=== PATIENT | female | born 1945 | race Caucasian/White ===

== ENCOUNTER 2017-11-28 08:40 | Day surgery (SDC) | payer MEDICARE, OTHER ==
[~2017-11-28] VITALS: Ht 154.9 cm; Wt 58.5 kg
[~2017-11-28 08:40] MED LIST: CYMBALTA20 MG PO; GABAPENTIN600 MG PO; LASIX40 MG PO; PROTONIX20 MG PO; SIMVASTATIN40 MG PO; SYNTHROID100 MCG PO
--- NOTE | 2017-11-28 11:20 | NUR ---
11/28/17 1120 Mary Escamilla 1114-PATIENT ARRIVED TO PACU ON 6L MASK O2 SAT 100% PATIENT NONAROUSABLE LAYING LEFT LATERAL RR EVEN. SB HR 41-43. SB DURING THE CASE.
--- NOTE | 2017-11-29 07:57 | OR ---
[facility] [address] [place], [place] [address] Signed DATE OF OPERATION: 11/28/2017 SURGEON: Christiano Nazario MD PREOPERATIVE DIAGNOSIS: Screening. POSTOPERATIVE DIAGNOSES: 1. A 3 mm polyp at 60 cm. 2. A 3 mm polyps x2 in mid rectum. 3. Tiny internal anal skin tags. PROCEDURE: Colonoscopy with cold biopsy. ESTIMATED BLOOD LOSS: None. INDICATIONS: Lisette is a 72-year-old female asked to see me for a followup colonoscopy. She said 12 years ago she underwent a colonoscopy at [facility] in [place], [place]. She says in the meantime, she is doing great. She has no family history of colon cancer or polyps. I gave her a pamphlet in the office on colonoscopy and we looked at that together. She understands the nature of the test along with the risks including, but not limited to gas bloating, crampy abdominal pain, bleeding, perforation, requiring surgery, and missed diagnosis. She also understands the need for IV conscious sedation. She had expressed understanding and wished to proceed. Lisette asked to use Percocet on a daily basis along with some morphine. Consequently, our standard Versed and fentanyl would not be enough. We asked an anesthesia provider help us with increased monitoring and sedation with propofol. PROCEDURE NOTE: Lisette was taken into our endoscopy suite and placed in the left lateral decubitus position. She was given IV sedation with propofol per our nurse plastics and composites inspector. A digital rectal exam was performed and this was unremarkable. The adult colonoscope was introduced and advanced all around into the cecum under direct visualization of the camera. It took a little extra propofol and some abdominal compression in order to get the scope into the cecum itself. It took a minute to irrigate and suction out the bile. After that, we could easily see the appendiceal orifice. The scope was then slowly withdrawn. We saw just a tiny polyp at 60 cm and a couple of tiny polyps in the mid Electronically Signed By: CHRISTIANO NAZARIO MD 11/29/17 0757 PATIENT NAME: LISETTE THOMAS OPERATIVE REPORT DATE OF : 45 REPORT #: [id number] PHYSICIAN: CHRISTIANO NAZARIO MD PCP: Raza Peralta Jr, PA-C REPORT IS CONFIDENTIAL AND NOT TO BE RELEASED WITHOUT AUTHORIZATION [facility] [address] [place] [id number] Signed rectum. There were easily removed with the cold biopsy forceps. Once in the rectum, the scope was then retroflexed and there was a couple of tiny internal anal skin tags. After this, the gas was suctioned out and the colonoscope removed. Lisette tolerated the procedure quite well. RECOMMENDATIONS: Lisette will follow up my office in 7 to 14 days to review her results. I suspect she will stay on the 10-year rotation. Christiano Nazario MD ALB/MODL /[id number] cc: MD Raza Leon Jr, PA-C Copies: CHRISTIANO NAZARIO MD, Daniel L Jr PA-C ~ Electronically Signed By: CHRISTIANO NAZARIO MD 11/29/17 0757 PATIENT NAME: LISETTE THOMAS OPERATIVE REPORT DATE OF : 45 REPORT #: [id number] PHYSICIAN: CHRISTIANO NAZARIO MD PCP: Raza Peralta Jr, PA-C REPORT IS CONFIDENTIAL AND NOT TO BE RELEASED WITHOUT AUTHORIZATION
== END 2017-11-28 11:57 | disposition home or self-care (01) ==
LOC: OPS 08:40 → DS 08:40 → OPS 09:15 → DS 09:15 → OPS 10:00
PROVIDERS: Colon & Rectal Surgery
PROC: 0DBE8ZX Excision of Large Intestine, Via Natural or Artificial Opening Endoscopic, Diagnostic (ICD-10-PCS; 2017-11-28)
PROC: 0DBP8ZX Excision of Rectum, Via Natural or Artificial Opening Endoscopic, Diagnostic (ICD-10-PCS; principal; 2017-11-28 10:00)
DX: Z12.11 Encounter for screening for malignant neoplasm of colon (principal); D12.8 Benign neoplasm of rectum; K63.5 Polyp of colon; K64.4 Residual hemorrhoidal skin tags; K21.9 Gastro-esophageal reflux disease without esophagitis; E03.9 Hypothyroidism, unspecified; F17.210 Nicotine dependence, cigarettes, uncomplicated; M19.90 Unspecified osteoarthritis, unspecified site; G89.29 Other chronic pain; Z79.899 Other long term (current) drug therapy
CPT/HCPCS: 88305; J2250; J2704; J3010; J7120

== ENCOUNTER 2024-06-27 07:50 | Day surgery (SDC) | payer MEDICARE, OTHER ==
[2024-06-19 09:36] VITALS: BP 132/69
[~2024-06-27] VITALS: Ht 154.9 cm; Wt 73.6 kg
[~2024-06-27 07:50] MED LIST changes: +CEFAZOLIN SODIUM 2 GM/20 ML SYR IV SCH; +HYDROCODON-ACE1 EAC8 PO; +HYDROXYZINE HCL25 MG PO; +IBLOOD GLUCOSE TEST STRIP 1 EA TEST VI PRN; +LACTATED RINGER'S 1,000 ML IV SCH; +LIDOCAINE HCL 1% 5 ML SDV INJ ONE; +LIPITOR20 MG PO; +MIDAZOLAM HCL 5 MG/5 ML VIAL IV PRN; +OMEPRAZOLE40 MG PO; -SYNTHROID100 MCG PO; +SYNTHROID125 MCG PO; +fentaNYL citrate 100 MCG/2 ML VIAL IV PRN; +propofoL 200 MG/20 ML VIAL ONE
[2024-06-27 08:06] VITALS: BP 104/85
[2024-06-27] MEDS ORDERED: LACTATED RINGER'S 1,000 ML IV ONE (09:49)
--- NOTE | 2024-06-27 10:08 | NUR ---
06/27/24 1008 Sheets,Geovanna 0958 PT ARRIVED TO PACU ON 10L WITH ORAL AIRWAY IN PLACE. RESP EVEN AND UNLABORED. PT NONAROUSABLE TO VERBAL STIMULI.
[2024-06-27 10:35] VITALS: BP 128/60
--- NOTE | 2024-06-27 12:49 | OR ---
[facility] [address] [place], [place] [address] Signed DATE OF OPERATION: 06/27/2024 SURGEON: Christiano Nazario MD PREOPERATIVE DIAGNOSIS: Personal history of colonic polyps in 2018 at age 72. POSTOPERATIVE DIAGNOSES: 1. 6 mm pedunculated polyp at 25 cm in sigmoid colon. 2. Minimal internal hemorrhoids. 3. Long redundant colon. PROCEDURE: Colonoscopy with snare polypectomy. ESTIMATED BLOOD LOSS: None. INDICATIONS: Lisette is a 78-year-old female asked to see me for a followup colonoscopy. She has had a negative colonoscopy in 2006 at the age of 60 while living in [place], [place]. I helped her with a colonoscopy in 2018 at the age of 72 for screening purposes. She had a small 3 mm tubular adenomatous polyp removed. She had several small hyperplastic polyps in the rectum. She always needs monitored anesthesia care because of her need for narcotics for her back pain. Despite her kyphosis, she still has good functional status. She is at her ideal body weight. Her primary care provider asked her to come back for what probably is her final colonoscopy. She has no lower GI complaints. There is no family history of colon cancer or polyps. In the office I had given our pamphlet on colonoscopy. She recalls the nature of the test. There is risk including, but not limited to gas bloating, crampy abdominal pain, bleeding, perforation requiring surgery, and missed diagnosis. We also reviewed the written instructions for a bowel prep line by line. It is the same bowel prep she took previously. She always needs monitored anesthesia care because of her need for opioids for her back pain. She also has significant medical issues including her COPD and acid reflux and hypertension and so forth. She understands an adult person has to take her home afterwards. She always has preoperative antibiotic after her hip surgery. She had expressed understanding and wished to proceed. DESCRIPTION OF PROCEDURE: Lisette was taken into our endoscopy suite, placed in the left lateral decubitus Electronically Signed By: CHRISTIANO NAZARIO MD 06/27/24 1249 PATIENT NAME: LISETTE THOMAS OPERATIVE REPORT DATE OF : 45 REPORT #: [id number] PHYSICIAN: CHRISTIANO NAZARIO MD PCP: KIAN MATHIAS PA-C REPORT IS CONFIDENTIAL AND NOT TO BE RELEASED WITHOUT AUTHORIZATION [facility] [address] [place] [id number] Signed position. She was given monitored anesthesia care propofol infusion per our nurse separating machine operator. A digital rectal exam was performed and this was unremarkable. She had no external hemorrhoids. No masses. Good sphincter tone. The colonoscope was introduced and advanced under direct visualization of camera. She has a long redundant colon. Her prep was moderate. We were able to get around to what we thought was the distal right colon based on visualization and palpation. We never could quite see the cecum or ileocecal valve itself, but we could see down the right colon. After this, the scope was then slowly withdrawn. We took out the polyp at 25 cm with the help of the snare and suctioned it through our scope. In the rectum, the scope was retroflexed, she has very minimal internal hemorrhoid tissue with some small internal anal skin tags. After this, the gas was suctioned out, colonoscope removed. Lisette tolerated the procedure quite well. RECOMMENDATIONS: I will see Lisette back in my office in 7 to 14 days to review her results. She really wants to see the cecum and right colon in more detail she could consider a barium enema which would require another bowel prep. In the future if she decides to have any colonoscopy she definitely needs monitored anesthesia care. She should probably increase her bowel prep as well. Christiano Nazario MD ALB/MODL /[id number] cc: FARZANA Baker MD Copies: CHRISTIANO NAZARIO MD ~ Electronically Signed By: CHRISTIANO NAZARIO MD 06/27/24 1249 PATIENT NAME: LISETTE THOMAS OPERATIVE REPORT DATE OF : 45 REPORT #: [id number] PHYSICIAN: CHRISTIANO NAZARIO MD PCP: KIAN MATHIAS PA-C REPORT IS CONFIDENTIAL AND NOT TO BE RELEASED WITHOUT AUTHORIZATION
--- NOTE | 2024-07-01 12:07 | PATH ---
[facility] [address] [place], [place] [address] Signed SPECIMEN(S): A SIGMOID POLYP, 25 CM SPECIMEN SOURCE: A. SIGMOID POLYP, 25 CM CLINICAL HISTORY: History of tubular adenoma, postop: Colon polyp, internal hemorrhoids FINAL PATHOLOGIC DIAGNOSIS: Sigmoid polyp at 25 cm: - Hyperplastic polyp. JVR:rojelio MICROSCOPIC EXAMINATION: Histologic sections of all submitted blocks are examined by light microscopy. These findings, together with the gross examination, support the pathologic diagnosis. GROSS DESCRIPTION: The specimen, labeled and designated "Ashwin Xiao, sigmoid polyp, 25 cm," is received in formalin and consists of one menezes soft tissue fragment, 0.9 x 0.7 x 0.4 cm. Entirely submitted in (A1). AB (under the direct supervision of a pathologist) The Gross Description was prepared using a voice recognition system. The report was reviewed for accuracy; however, sound-alike word errors, addition and/or deletions may occur. If there is any question about this report, please contact Client Services. PERFORMING LABORATORY: Technical component was performed by [facility], [address] [place] [id number] (CLIA# [id number]). Professional interpretation was performed by [facility], [address] [place] [id number] (CLIA#: [id number]). Diagnostician: Mendez Meredith MD Pathologist Electronically Signed 07/01/2024 Copies: PATIENT NAME: BASSAM XIAO PATHOLOGY DATE OF : 45 REPORT #: [id number] PHYSICIAN: [facility] PCP: KIAN MATHIAS PA-C REPORT IS CONFIDENTIAL AND NOT TO BE RELEASED WITHOUT AUTHORIZATION [address] [address] Signed ~ PATIENT NAME: BASSAM XIAO PATHOLOGY DATE OF : 45 REPORT #: [id number] PHYSICIAN: [facility] PCP: KIAN MATHIAS PA-C REPORT IS CONFIDENTIAL AND NOT TO BE RELEASED WITHOUT AUTHORIZATION
== END 2024-06-27 10:43 | disposition home or self-care (01) ==
LOC: DS 07:50
PROVIDERS: ATTEND Colon & Rectal Surgery
PROC: 0DBN8ZZ Excision of Sigmoid Colon, Via Natural or Artificial Opening Endoscopic (ICD-10-PCS; principal; 2024-06-27 08:40)
DX: Z12.11 Encounter for screening for malignant neoplasm of colon (principal); K63.5 Polyp of colon; K64.8 Other hemorrhoids; K63.89 Other specified diseases of intestine; I10 Essential (primary) hypertension; J44.9 Chronic obstructive pulmonary disease, unspecified; K21.9 Gastro-esophageal reflux disease without esophagitis; E03.9 Hypothyroidism, unspecified; Z86.0101 Personal history of adenomatous and serrated colon polyps; Z79.890 Hormone replacement therapy; Z79.899 Other long term (current) drug therapy; Z88.8 Allergy status to other drugs, medicaments and biological substances
CPT/HCPCS: 00811; 88305; J0690; J2704; J7121